=== PATIENT | female | born 1950 | race Caucasian/White ===

== ENCOUNTER 2020-07-02 19:43 | Inpatient (IN) | payer MEDICARE, OTHER ==
[~2020-07-02] VITALS: Ht 170.2 cm; Wt 57.2 kg
--- NOTE | 2020-07-02 20:07 | NUR ---
BIBPA FROM [facility] C/O MORE ALTERED THAN NORMAL. PER EMT REPORT, POSSIBLE EXPOSURE TO COVID. PT A/OX3 VSS ROOM AIR, SURGICAL MASK APPLIED, ORDERED RECEIVED AND CARRIED OUT.
[2020-07-02 20:15] LABS: BASOPHILS % (AUTO) 0.5 % (0.0-2.0); EOSINOPHILS % (AUTO) 1.2 % (0.0-6.0); HEMATOCRIT 43 % (33-45); HEMOGLOBIN 14.3 g/dL (11.5-14.8); LYMPHOCYTES # (AUTO) 1.7 /CMM (0.8-4.8); LYMPHOCYTES % (AUTO) 20.8 % (20.0-44.0); MEAN CORPUSCULAR HGB CONC 33 g/dl (31.0-36.0); MEAN CORPUSCULAR VOLUME 83 fL (82-100); MONOCYTES # (AUTO) 0.6 /CMM (0.1-1.30); MONOCYTES % (AUTO) 7.9 % (2.0-12.0); NEUTROPHILS # (AUTO) 5.6 /CMM (1.8-8.9); NEUTROPHILS % (AUTO) 69.6 % (43.0-81.0); PLATELET COUNT (AUTO) 265 /CMM (150-450); RED BLOOD CELL COUNT(AUTO) 5.16 MIL/uL (4.0-5.2); WHITE BLOOD COUNT (AUTO) 8.1 K/uL (4.3-11.0)
[2020-07-02 20:21] LABS: CALCIUM, SERUM 9.4 mg/dL (8.5-10.1); CARBON DIOXIDE 27 mmol/L (21-32); CHLORIDE 105 mmol/L (98-107); CREATININE 0.7 mg/dL (0.6-1.3); GLUCOSE 96 mg/dL (74-106); POTASSIUM 3.7 mmol/L (3.5-5.1); SODIUM SERUM 143 mmol/L (136-145); UREA NITROGEN, BLOOD 28 mg/dL (7-18)
--- NOTE | 2020-07-02 20:29 | NUR ---
RADIOLOGY AT BEDSIDE FOR CXR
--- NOTE | 2020-07-02 20:29 | NUR ---
covid test collected and sent to lab
--- NOTE | 2020-07-02 20:33 | NUR ---
pt taken to ct
[2020-07-02 20:34] LABS: ALANINE AMINOTRANSFERASE 19 U/L (12-78); ALKALINE PHOSPHATASE 65 U/L (46-116); ASPARTATE AMINOTRANSFERASE 14 U/L (15-37); B-TYPE NATRIURETIC PEPTIDE 30 PG/ML (0-125); BILIRUBIN,TOTAL 0.9 mg/dL (0.2-1.0); TOTAL PROTEIN, SERUM 7.4 g/dL (6.4-8.2)
--- NOTE | 2020-07-02 20:42 | NUR ---
PT RETURNED FROM CT
--- NOTE | 2020-07-02 20:55 | NUR ---
urine collected and sent to lab
[2020-07-02 21:07] LABS: APPEARANCE,URINE Slightly Cloudy (CLEAR); BILIRUBIN,URINE MODERATE (NEGATIVE); BLOOD, URINE Negative Ery/uL (NEGATIVE); KETONES,URINE 40 (NEGATIVE); LEUKOCYTE ESTERASE ,URINE Negative (NEGATIVE); NITRITE, URINE Negative (NEGATIVE); PH,URINE 5.5 (5.0-8.0); PROTEIN,URINE 30 mg/dl (NEGATIVE); UGLUCOSE Negative (NEGATIVE)
[2020-07-02 21:11] LABS: COLOR,URINE Dark Yellow (YELLOW)
[2020-07-02 21:17] LABS: ABG BASE EXCESS -3.4 mmol/L; ABG OXYGEN SATURATION 95.3 % (92.0-98.5); ABG PCO2 32.6 mmHg (35.0-45.0); ABG PH 7.411 (7.350-7.450); ABG PO2 81.2 mmHg (75.0-100.0); AaDO2 29.5 mmHg; COHb 1.1 % (0.5-1.5); MetHb 0.4 % (0.0-1.5); O2Hb 93.9 % (94.0-97.0); SITE, ABG Right Radial; VENT MODE, BG room air
[2020-07-02 21:19] LABS: CALCIUM OXALATE CRYSTALS,UR Few /HPF (None Seen)
[2020-07-02 21:20] LABS: RBC,URINE 0-2 /HPF (0-2)
[2020-07-02 21:21] LABS: BACTERIA,URINE Few /HPF (None Seen); MUCUS,URINE Many /LPF (None Seen); SQUAMOUS EPITHELIAL CELL,UR Few /HPF (None Seen)
[2020-07-02 21:23] LABS: C-REACTIVE PROTEIN 0.4 mg/dL (0.0-0.9); CREATINE KINASE, TOTAL 15 U/L (26-192); D-DIMER 0.49 mg/L(FEU (0.17-0.50); FERRITIN 180 ng/mL (8-388)
--- NOTE | 2020-07-02 21:35 | NUR ---
DR. MALDONADO SPEAKING WITH CARLO KELLEY CONTENT PRODUCER
--- NOTE | 2020-07-02 21:36 | NUR ---
BED ASSIGNMENT 106
[2020-07-02] MEDS ORDERED: DONE5TAB7 PO (21:37)
--- NOTE | 2020-07-02 21:39 | NUR ---
called in report to marly coffman
[2020-07-02] MEDS ORDERED: IV 1/2NS 1000 ML 1,000 ML IV PRN (21:49)
[2020-07-02] MEDS ORDERED: MAGNESIUM HYDROXIDE 30 ML UDC PO PRN (22:00)
[2020-07-02] MEDS ORDERED: ACETAMINOPHEN 325 MG TABLET PO PRN (22:00)
[2020-07-02] MEDS ORDERED: MAG HYDROX/AL HYDROX/SIMETH 30 ML UDC PO PRN (22:00)
[2020-07-02] MEDS ORDERED: ONDANSETRON HCL/PF 4 MG/2 ML VIAL IVP PRN (22:00)
--- NOTE | 2020-07-02 22:05 | NUR ---
RN OPENING NOTE RECEIVED PATIENT FROM ER ALERT ORIENTED X2-3 VERBALLY RESPONSIVE ABLE TO MAKE NEEDS KNOWN,ADMIT TO TELE UNIT FOR ENCEPHALOPATHY AND R/O COVID.PATIENT CAME FROM [facility] C/O MORE ALTERED THAN NORMAL.BREATHING IS EVEN AND NONLABORED,ON ROOM AIR 99% R/O FOR COVID IV SITE IS RIGHT AC INTACT PATENT,AMBULATORY WITH ASSIST ,CONTINENT TO BOWEL/BLADDER,KEEP CALL LIGHT WITHIN REACH,BED ALARM IS ON,BED IS IN LOW POSITION,AND LOCKED.CONTINUE TO MONITOR.
--- NOTE | 2020-07-02 22:18 | NUR ---
transfered pt to [facility]
--- NOTE | 2020-07-02 22:20 | NUR ---
RN NOTE PATIENT STRONGLY REFUSE TO HAVE SKIN ASSESSMENT AND STATES DO NOT HAVE ANY SKIN ISSUE.CONTINUE TO MONITOR.
[2020-07-02 22:27] VITALS: BP 111/70
[2020-07-02] MEDS ORDERED: BISACODYL (5 MG) 5 MG TABLET.DR PO ONE (22:30)
[2020-07-02] MEDS: DONEPEZIL 5 MG TABLET PO SCH (22:33)
[2020-07-03] VITALS (7 sets, daily range): BP systolic 106–120; BP diastolic 45–66
--- NOTE | 2020-07-03 00:25 | NUR ---
0025 DONNA COUCH MADE AWARE THAT PATIENT IS STRONGLY REFUSING HER IVF WITH ORDER TO HOLD IT. ORDER NOTED AND CARRIED OUT.
--- NOTE | 2020-07-03 02:00 | NUR ---
RN NOTE PATIENT REFUSED TO BE MONITORED ON TELE MONITORING AND TOOK OFF THE LEADS,EXPLAINED RISKS OF NOT BE MONITORED ON TELE MONITORING STILL REFUSED CONTINUE TO MONITOR
--- NOTE | 2020-07-03 06:48 | NUR ---
RN CLOSING NOTE. PATIENT REMAINS ALERT ORIENTED X2-3 VERBALLY RESPONSIVE ON ROOM AIR 99% BREATHING IS EVEN AND UNLABORED,NO SOB NOT ACUTE DISTRESS NOTED,SHE IS ON MONITORING FOR R/O COVID.SHE REFUSED TO BE MONITORED IN TELE,ALSO SHE REFUSED TO BE ASSESSED ON SKIN ASSESSMENT,AND REFUSED TO HAVE IV HYDRATION,IV SITE IS ON RIGHT AC PATIENT AND INTACT,ALL PO MEDS GIVEN MD ORDERED,KEPT CALL LIGHT WITHIN REACH,ALL NEEDS MET.ENDORSE NEXT COMING SHIFT FOR CONTINUATION OF CARE
[2020-07-03 07:04] LABS: BASOPHILS % (AUTO) 0.6 % (0.0-2.0); EOSINOPHILS % (AUTO) 1.1 % (0.0-6.0); HEMATOCRIT 39 % (33-45); HEMOGLOBIN 13.1 g/dL (11.5-14.8); LYMPHOCYTES # (AUTO) 1.4 /CMM (0.8-4.8); LYMPHOCYTES % (AUTO) 17.8 % (20.0-44.0); MEAN CORPUSCULAR HGB CONC 34 g/dl (31.0-36.0); MEAN CORPUSCULAR VOLUME 83 fL (82-100); MONOCYTES # (AUTO) 0.7 /CMM (0.1-1.30); NEUTROPHILS # (AUTO) 5.8 /CMM (1.8-8.9); NEUTROPHILS % (AUTO) 71.5 % (43.0-81.0); PLATELET COUNT (AUTO) 223 /CMM (150-450); RED BLOOD CELL COUNT(AUTO) 4.72 MIL/uL (4.0-5.2)
[2020-07-03 07:25] LABS: ALANINE AMINOTRANSFERASE 13 U/L (12-78); ALBUMIN 3.3 g/dL (3.4-5.0); ALKALINE PHOSPHATASE 54 U/L (46-116); ASPARTATE AMINOTRANSFERASE 10 U/L (15-37); BILIRUBIN,TOTAL 0.6 mg/dL (0.2-1.0); CALCIUM, SERUM 8.9 mg/dL (8.5-10.1); CARBON DIOXIDE 29 mmol/L (21-32); CHLORIDE 105 mmol/L (98-107); CREATININE 0.5 mg/dL (0.6-1.3); GLUCOSE 113 mg/dL (74-106); PHOSPHORUS 3.4 mg/dL (2.5-4.9); POTASSIUM 3.5 mmol/L (3.5-5.1); SODIUM SERUM 140 mmol/L (136-145); TOTAL PROTEIN, SERUM 6.2 g/dL (6.4-8.2); UREA NITROGEN, BLOOD 28 mg/dL (7-18)
[2020-07-03] MEDS: PANTOPRAZOLE 40 MG TABLET.DR PO SCH ×2 (07:30→08:59)
[2020-07-03 07:45] LABS: CHOLESTEROL 147 mg/dL (<200); HDL CHOLESTEROL 33 mg/dL (40-60); LDL 96 mg/dL (0-99); THYROID STIMULATING HORMONE 2.419 uIU/mL (0.358-3.74); TRIGLYCERIDES 103 mg/dL (30-150)
--- NOTE | 2020-07-03 08:00 | NUR ---
STATUE MAKER OPENING NOTE RECEIVED PATIENT ALERT ORIENTED X2-3 VERBALLY RESPONSIVE ABLE TO MAKE NEEDS KNOWN,ADMIT TO TELE UNIT FOR ENCEPHALOPATHY AND R/O COVID.PT REFUSED TELE MONITOR, PROTONIX TAB AND IVF INSPITE OF EXPLAINING THE RISKS AND BENEFITS. ENCPURAGED FLUIDS. PATIENT KEEPS SAYING, "I AM OK I DRINK ENOUGH FLUIDS AND MY HEART IS OK TOO THAT IS WHY I DON'T NEED THE IVF AND TELE MONITOR." BREATHING IS EVEN AND NONLABORED,ON ROOM AIR 99% R/O FOR COVID IV SITE IS RIGHT AC INTACT PATENT,AMBULATORY WITH ASSIST ,CONTINENT OF BOWEL/BLADDER, WITH BRP. CALL LIGHT PLACED WITHIN REACH. BED ALARM IS ON. BED IS IN LOW POSITION,AND LOCKED.CONTINUE TO MONITOR.
[2020-07-03] MEDS: ENOXAPARIN SODIUM 40 MG/0.4 ML DISP.SYRIN SQ SCH ×2 (13:00→13:17)
--- NOTE | 2020-07-03 13:27 | NUR ---
PT REFUSED LOVENOX INSPITE OF EXPLAINING THE RISKS AND BENEFITS.
--- NOTE | 2020-07-03 19:02 | NUR ---
covid negative per lab,dr. kent notified,nursing sup made aware ,awaits bed from noncovid floor.
--- NOTE | 2020-07-03 19:20 | NUR ---
PT CONTINUES TO REFUSE IVF AND TELE MONITOR INSPITE OF EXPLAINING THE RISKS AND BENEFITS. ENCOURAGED TO INCREASE FLUID/ORAL INTAKE/AND MOBILITY BUT PT CONTINUES TO LAY DOWN AND REST IN BED MOST OF THE TIME.
[2020-07-03] MEDS: DONEPEZIL 5 MG TABLET PO SCH (22:00)
--- NOTE | 2020-07-03 22:10 | NUR ---
TELE/RN NOTES GIVE REPORT TO MOE CASANOVA. PATIENT IS ALERT AND ORIENTED 2-3 SYRIAC SPEAKING. PATIENT MOST RECENT V/S TAKEN AND RECORDED BP(116/45) T(97.9) HR (80) RR (18) 02 SAT (96%). PATIENT ON RA WITH IV LINE @ R AC #20 ; NO IV FLUID RUNNING ( PT REFUSED ; MD AWARE). PATIENT TRANSFERRED TO MEDICAL SURGICAL ROOM 304 BED #1 VIA MEDICAL BED. ALL PATIENT BELONGINGS TRANSFERRED WITH THE PATIENT. PATIENT SAFETY WAS MAINTAINED, YARIEL ROSA RECEIVED THE PATIENT AND WILL CONTINUE CARE
--- NOTE | 2020-07-03 22:30 | NUR ---
MS RN NOTES RECEIVED REPORT FROM FARNAZ,PATIENT ALERT,ORIENTED X4,MED SURG STATUS.SALINE LOCK RIGHT AC INTACT AND PATENT BUT PATIENT CLAIMED ITS PAINFUL AND WANTS ANOTHER SITE.NEW SALINE LOCK PLACE ON RIGHT HAND #22.REFUSED IVF WELL PER REPORT.AMBULATE TO THE TOILET WITH STANDBY ASSIST.REFUSED BODY CHECK.CALL LIGHT IN REACH,NEEDS ANTICIPATED.
[2020-07-04 06:18] LABS: BASOPHILS % (AUTO) 0.8 % (0.0-2.0); HEMATOCRIT 37 % (33-45); HEMOGLOBIN 12.5 g/dL (11.5-14.8); LYMPHOCYTES # (AUTO) 1.4 /CMM (0.8-4.8); LYMPHOCYTES % (AUTO) 23.9 % (20.0-44.0); MEAN CORPUSCULAR HGB CONC 34 g/dl (31.0-36.0); MEAN CORPUSCULAR VOLUME 83 fL (82-100); MONOCYTES # (AUTO) 0.6 /CMM (0.1-1.30); MONOCYTES % (AUTO) 9.5 % (2.0-12.0); NEUTROPHILS # (AUTO) 3.9 /CMM (1.8-8.9); NEUTROPHILS % (AUTO) 63.8 % (43.0-81.0); PLATELET COUNT (AUTO) 218 /CMM (150-450); RED BLOOD CELL COUNT(AUTO) 4.46 MIL/uL (4.0-5.2); WHITE BLOOD COUNT (AUTO) 6.1 K/uL (4.3-11.0)
--- NOTE | 2020-07-04 06:27 | NUR ---
MS RN NOTES ON BED CALM AND QUIET,NO IVF,PATIENT REFUSED.AMBULATE WITH ASSIST.IN NO ACUTE DISTRESS.
[2020-07-04 07:07] LABS: CREATININE 0.6 mg/dL (0.6-1.3); PHOSPHORUS 3.6 mg/dL (2.5-4.9); POTASSIUM 3.5 mmol/L (3.5-5.1)
--- NOTE | 2020-07-04 07:47 | NUR ---
rn notes patient received on room air, no sob noted, a/o x2-3. Ambulatory with assist, R hand 22 with 1/2 NS @ 75 ml per hour. Bed at the lowest setting, call light within reach, side rails up x2.
[2020-07-04 08:00] VITALS: BP 105/43
[2020-07-04] MEDS: PANTOPRAZOLE 40 MG TABLET.DR PO SCH (08:05)
[2020-07-04] MEDS: ENOXAPARIN SODIUM 40 MG/0.4 ML DISP.SYRIN SQ SCH ×2 (08:06→09:00)
--- NOTE | 2020-07-04 15:41 | NUR ---
patient is discharging today, spoke with Maura @ [facility] [phone], patient is accepted to room#1.Patient is poor historian due to alzheimers and has no family per Maura. Ambulance eta 6:30pm Addendum: 07/04/20 at 1541 by TASHIA ROBB RN Amended: Links added.
[2020-07-04 16:00] VITALS: BP 114/57
--- NOTE | 2020-07-04 18:08 | NUR ---
rn closing notes patient received on room air, no sob noted, a/o x2-3. Ambulatory with assist, R hand 22 with 1/2 NS @ 75 ml per hour. Bed at the lowest setting, call light within reach, side rails up x2.
--- NOTE | 2020-07-04 19:04 | NUR ---
RN MERRY NOTES PATIENT picked up by ambulance, belonging with patient, folder with information with patient. VSS, IV lines removed. Refused skin check and photo x3.
== END 2020-07-04 19:10 | DRG 640 ==
LOC: ER 19:43 → TELE1 21:49 → MED 07-03 21:57
PROVIDERS: ADMIT Nurse Practitioner Acute Care; ATTEND Student in an Organized Health Care Education/Training Program
DX: E86.0 Dehydration (principal); G93.41 Metabolic encephalopathy; D68.69 Other thrombophilia; G30.9 Alzheimer's disease, unspecified; F02.80 Dementia in other diseases classified elsewhere, unspecified severity, without behavioral disturbance, psychotic disturbance, mood disturbance, and anxiety; K59.00 Constipation, unspecified; D63.8 Anemia in other chronic diseases classified elsewhere; F32.9 Major depressive disorder, single episode, unspecified; R33.9 Retention of urine, unspecified
CPT/HCPCS: 36415; 36600; 70450-TC; 71045-TC; 80048-TC; 80053-TC; 80061-TC; 81000-TC; 82550-TC; 82728-TC; 83605-TC; 83615-TC; 83735-TC; 83880; 84100-TC; 84443-TC; 84484-TC; 85025-TC; 85378-TC; 85385-TC; 85730-TC; 86140-TC; 87040-TC; 87081-TC; 87086-TC; G0378; J1650; J3490; U0003-CS